=== PATIENT | female | born 1945 | race Caucasian/White ===

== ENCOUNTER → 2017-04-03 | Outpatient (CLI) | payer MEDICARE, OTHER ==
[~2017-04-03] MED LIST: ASPI81TA11 PO; ATEN50TA PO; ATOR20TA15 PO; CALC600T PO; HYDR25TA5 PO; MULTTAB67 PO
[2017-04-03 13:03] LABS: HEMATOCRIT 39.2 % (35.0-46.0); MEAN CELL VOLUME 92.3 FL (80.0-100.0); MEAN CORPUSCULAR HEMOGLOBIN 31.7 PG (27.0-34.0); MEAN CORPUSCULAR HGB CONC 34.4 % (32.0-36.0); PLATELET COUNT 161 TH/MM3 (150-450); RED BLOOD COUNT 4.25 MIL/MM3 (4.00-5.30); RED CELL DISTRIBUTION WIDTH 13.2 % (11.6-17.2); REVIEW FLAG FINAL; WHITE BLOOD COUNT 4.6 TH/MM3 (4.0-11.0)
[2017-04-03 13:13] LABS: ANION GAP 3 MEQ/L (5-15); BICARBONATE 31.3 MEQ/L (21.0-32.0); BLOOD UREA NITROGEN 22 MG/DL (7-18); CHLORIDE 107 MEQ/L (98-107); GLUCOSE,FASTING 88 MG/DL (74-99); POTASSIUM 4.3 MEQ/L (3.5-5.1); SODIUM (NA) 141 MEQ/L (136-145)
[2017-04-03 13:16] LABS: ALKALINE PHOSPHATASE 69 U/L (45-117); ALT (GPT) 34 U/L (10-53); AST (GOT) 25 U/L (15-37); GLOMERULAR FILTRATION RATE 76 ML/MIN (>89); HDL CHOLESTEROL 65.5 MG/DL (40.0-60.0); LDL CHOLESTEROL 98 MG/DL (0-99); TOTAL BILIRUBIN ADULT 0.7 MG/DL (0.2-1.0)
== END ==
LOC: PLAB 10:29
PROVIDERS: ATTEND Family Medicine
DX: E78.5 Hyperlipidemia, unspecified (principal); I10 Essential (primary) hypertension
CPT/HCPCS: 36415; 80053; 80061; 85027

== ENCOUNTER → 2018-01-05 | Outpatient (CLI) | payer MEDICARE, OTHER ==
[~2018-01-05] MED LIST changes: +ALEV220T14 PO; -ASPI81TA11 PO; +ASPI81TA23 PO; +MAPA500T13 PO
[2018-01-05 09:11] LABS: AUTOMATED NEUTROPHIL # 3.3 TH/MM3 (1.8-7.7); BASOPHIL # 0.1 TH/MM3 (0-0.2); EOSINOPHIL # 0.2 TH/MM3 (0-0.4); EOSINOPHIL % 3.9 % (0.0-4.0); HEMATOCRIT 40.3 % (35.0-46.0); HEMOGLOBIN 14.1 GM/DL (11.6-15.3); LYMPH % 26.2 % (9.0-44.0); LYMPHOCYTE # 1.5 TH/MM3 (1.0-4.8); MEAN CORPUSCULAR HEMOGLOBIN 32.2 PG (27.0-34.0); MEAN PLATELET VOLUME 8.4 FL (7.0-11.0); MONO % 10.6 % (0.0-8.0); MONOCYTE # 0.6 TH/MM3 (0-0.9); NEUT % 58.3 % (16.0-70.0); PLATELET COUNT 192 TH/MM3 (150-450); RED BLOOD COUNT 4.38 MIL/MM3 (4.00-5.30); RED CELL DISTRIBUTION WIDTH 13.1 % (11.6-17.2); WHITE BLOOD COUNT 5.7 TH/MM3 (4.0-11.0)
[2018-01-05 09:20] LABS: INTERNATIONAL NORMALIZED RATIO 1.1 RATIO; PROTHROMBIN TIME - PATIENT 10.7 SEC (9.8-11.6)
[2018-01-05 09:34] LABS: BICARBONATE 28.3 MEQ/L (21.0-32.0); CALCIUM 9.8 MG/DL (8.5-10.1); CREATININE 0.77 MG/DL (0.50-1.00)
[2018-01-05 12:32] LABS: BACTERIA, URINE MANY /hpf; BILIRUBIN, URINE NEG (NEG); BLOOD, URINE SMALL (NEG); GLUCOSE,URINE NEG (NEG); KETONE, URINE NEG (NEG); MUCUS URINE FEW /lpf (OCC); NITRITE,URINE POS (NEG); PH, URINE 6.5 (5.0-8.5); SQUAMOUS EPITHELIAL CELL URINE <1 /hpf (0-5); URINE COLOR YELLOW (YELLW/STRAW); URINE LEUKOCYTE ESTERASE TRACE (NEG)
--- NOTE | 2018-01-06 23:13 | EKG ---
Date Performed: 01/05/2018 Time Performed: 08:36:59 PTAGE: 73 years EKG: SINUS BRADYCARDIA BORDERLINE ECG Since the prior tracing, there has been no significant jared nge DOCTOR: Gerber Edouard Interpretating Date/Time 01/06/2018 23:13:05
== END ==
LOC: CPRE 08:05
PROVIDERS: ATTEND Orthopaedic Surgery Orthopaedic Surgery of the Spine
DX: Z01.812 Encounter for preprocedural laboratory examination (principal); Z01.810 Encounter for preprocedural cardiovascular examination; R82.99 Other abnormal findings in urine; M16.12 Unilateral primary osteoarthritis, left hip; B96.20 Unspecified Escherichia coli [E. coli] as the cause of diseases classified elsewhere; Z16.11 Resistance to penicillins
CPT/HCPCS: 36415; 80048; 81001; 85025; 85610; 85730; 87077; 87086; 87186; 93005

== ENCOUNTER → 2018-01-15 | Outpatient (CLI) | payer MEDICARE, OTHER ==
[~2018-01-15] MED LIST changes: +ASPI325T33 PO; +COMMODE 3-IN-11 MIS; +HYDR-3580 PO; +WALKER WHEELS/F1 MIS
[2018-01-15 10:19] LABS: AMORPHOUS SEDIMENT, URINE MANY; BACTERIA, URINE OCC /hpf; BILIRUBIN, URINE NEG (NEG); BLOOD, URINE NEG (NEG); GLUCOSE,URINE NEG (NEG); KETONE, URINE NEG (NEG); NITRITE,URINE NEG (NEG); PH, URINE 7.5 (5.0-8.5); URINE COLOR YELLOW (YELLW/STRAW); URINE LEUKOCYTE ESTERASE NEG (NEG)
== END ==
LOC: PLAB 07:52
DX: N39.0 Urinary tract infection, site not specified (principal)
CPT/HCPCS: 81001

== ENCOUNTER 2018-01-25 07:28 | Inpatient (IN) | payer MEDICARE, OTHER ==
[~2018-01-25] VITALS: Ht 170.2 cm; Wt 75.9 kg
[~2018-01-25 07:28] MED LIST changes: -ASPI325T33 PO; -COMMODE 3-IN-11 MIS; -HYDR-3580 PO; -WALKER WHEELS/F1 MIS
[2018-01-25] MEDS ORDERED: CHLORHEXIDINE GLUCONATE 2 % 1 PACK (2 CLOTHS) TOPICAL PRN (07:45)
[2018-01-25] MEDS ORDERED: METOPROLOL TARTRATE 25 MG TAB PO PRN (07:45)
[2018-01-25] MEDS ORDERED: SODIUM CHLORID 0.9% 500 ML IV PRN (07:45)
[2018-01-25] MEDS ORDERED: VANCOMYCIN 1 GM/200 ML INJ 200 ML IV ONE (08:03)
[2018-01-25] MEDS: POVIDONE IODINE 5% (ANTISEPSIS KIT) 4 APPLICATIONS EACH NARE PRN ×2 (08:15→13:02)
[2018-01-25] MEDS: LACTATED RINGER'S 1000 ML IV PRN ×2 (08:15→13:02)
[2018-01-25] MEDS: CHLORHEXIDINE GLUCONATE 4% SOLN 120 ML BTL TOPICAL SCH ×2 (08:15→13:02)
[2018-01-25] MEDS ORDERED: BUPIVACAINE/EPINEPHRINE 0.25% 50 ML VIAL ONE (08:20)
[2018-01-25] MEDS ORDERED: GENTAMICIN SULFATE 80 MG/2 ML VIAL ONE (08:20)
[2018-01-25] MEDS ORDERED: BUPIVACAINE/EPINEPHRINE 0.25% PF 10 ML VIAL ONE (08:20)
[2018-01-25] MEDS: VANCOMYCIN 1 GM/200 ML PREMIX IV SCH ×2 (08:29→13:01)
[2018-01-25] MEDS ORDERED: ceFAZolin INJ 1,000 MG VIAL ONE (09:00)
[2018-01-25] MEDS: SODIUM CHLORIDE 0.9% IV SCH ×2 (09:24→13:01)
[2018-01-25] MEDS: TRANEXAMIC ACID IV SCH ×2 (09:24→13:01)
[2018-01-25] MEDS ORDERED: ACETAMINOPHEN 1000 MG/100 ML 100 ML IV ONE (09:50)
[2018-01-25] MEDS: EXPAREL PERI-ARTICULAR INJECTION (TOTAL VOL. 60 ML) P-ARTICULR SCH ×4 (10:42→13:01)
[2018-01-25] MEDS ORDERED: ePHEDrine/NS 25 MG/5 ML SYRINGE IV ONE (12:00)
[2018-01-25] MEDS ORDERED: NEOSTIGMINE 5 MG/5 ML SYRINGE IV PUSH ONE (12:00)
[2018-01-25] MEDS ORDERED: PROPOFOL 200 MG/20 ML AMP IV ONE (12:00)
[2018-01-25] MEDS ORDERED: GLYCOPYRROLATE 1 MG/5 ML SYRINGE IV PUSH ONE (12:00)
[2018-01-25] MEDS ORDERED: ONDANSETRON HCL 4 MG/2 ML VIAL IV ONE (12:00)
[2018-01-25] MEDS ORDERED: LIDOCAINE HCL 1% PF 5 ML SYRINGE OTHER ONE (12:00)
[2018-01-25] MEDS ORDERED: SUCCINYLCHOLINE CHLORIDE 100 MG/5 ML SYRINGE IV PUSH ONE (12:00)
[2018-01-25] MEDS ORDERED: DEXAMETHASONE SOD PHOS 4 MG/ML VIAL IV ONE (12:00)
[2018-01-25] MEDS ORDERED: ROCURONIUM INJ 50 MG/5 ML SYRINGE IV PUSH ONE (12:00)
[2018-01-25] MEDS ORDERED: DO NOT ADM ANY ANTICOAGULANT DRUGS PRN (12:11)
--- NOTE | 2018-01-25 12:11 | PD.OP ---
cc: Royce Jenkins MD Operative Report Date of Surgery: Jan 25, 2018 Preoperative Diagnosis: Osteoarthritis left hip Postoperative Diagnosis: Same Procedure: Left total hip replacement arthroplasty, direct anterior exposure Anesthesia: Gen. Surgeon: Royce Jenkins Family Preservation Caseworker(s): ALDO Robertson Operation and Findings: EBL: 300 cc INDICATION: This patient presents with significant hip pain related to severe osteoarthritis of the left hip. Despite extensive conservative care this patient continues to be painful and now presents for surgical treatment. NOTE: Tequila Robertson PA-C was present for the entire surgical procedure as my preschool assistant. In my medical opinion her skill and care was necessary for the proper management of this patient. COMPONENTS: COMPANY: [employer] CUP: [place], 54 mm, 100 series, gription surface LINER: Altrx 36, neutral STEM: [place], size 13, standard offset, hydroxyapatite-coated HEAD: Metal, 36 mm, +1.5, 10/12 taper PROCEDURE: This patient was brought to the operating room and anesthetized in the supine position and positioned on the fracture table with both legs held extended. The left hip and leg was scrubbed with alcohol followed by Hibiclens followed by ChloraPrep and draped sterilely. Antibiotics were given within routine time window and a timeout was done. A 4 inch incision was made starting 2 cm distal and 2 cm lateral to the anterior superior iliac spine. The fascia naresh was opened longitudinally. The interval between the fascia naresh and the rectus was opened down to the capsule of the hip joint. Retractors were positioned allowing good visualization of the capsule. This was opened longitudinally and flaps were created. Stay sutures were utilized. Exposure was excellent. The neck was cut at the proper location using fluoroscopy as a guide. The head was removed. Deep retractors were positioned allowing good visualization of the acetabulum. Acetabulum was deepened down to the floor starting with a proper size reamer and reaming up to 53 mm. A trial was utilized. Fluoroscopy was used to check position and confirmed satisfactory alignment. The rim was reamed with a 54 mm reamer and the final cup was positioned in approximately 20 of anteversion and 40-45 of abduction. Position was satisfactory. A single hole eliminator was positioned followed by the final liner. The lifting hook was utilized. The leg was dropped to the floor, maximally externally rotated and brought across the midline. Retractors were positioned. A box osteotome was utilized followed by progressive broaching to the proper stem size. Trial reduction showed excellent alignment and fit. With 60 of external rotation the leg was dropped to the floor without evidence of anterior subluxation. The wound was irrigated. The final stem was inserted and was found to be very stable. The final reduction using the final head. Stability was as previously noted. Intraoperative x-rays were taken. The wound was irrigated copiously. Hemostasis was controlled. Local anesthesia was utilized. The capsule was repaired with #2 Tycron sutures. The fascia naresh was repaired with running 0 PDS on a loop. Subcutaneous tissue was approximated with 2-0 Vicryl and skin with running intradermal 3-0 Vicryl followed by Steri-Strips. A sterile dressing was applied. The patient was awakened and taken to the recovery room in satisfactory condition. FINDINGS: There was severe osteoarthritis of the left hip. An anterior osteophyte was removed with osteotomes. The final fit, leg length and offset appeared be excellent. There was no complication was appreciated. Royce Jenkins MD Jan 25, 2018 12:10
[2018-01-25] MEDS ORDERED: ASPI325T33 PO (12:13)
[2018-01-25] MEDS ORDERED: HYDR-3580 PO (12:13)
[2018-01-25] MEDS ORDERED: MISCELLANEOUS NURSING INFORMATION XX PRN (12:15)
[2018-01-25] MEDS ORDERED: Post-op Orders (for Pharmacy) XX ONE (12:15)
[2018-01-25] MEDS ORDERED: ACETAMINOPHEN/HYDROcodone 325 MG/7.5 MG TAB PO PRN (12:15)
[2018-01-25] MEDS ORDERED: MISCELLANEOUS PHARMACY INFORMATION XX ONE (12:15)
[2018-01-25] MEDS ORDERED: MORPHINE SULFATE 8 MG/ML INJ IM PRN (12:15)
[2018-01-25] MEDS ORDERED: NALOXONE HCL 0.4 MG/ML AMP IV PUSH PRN (12:15)
[2018-01-25] MEDS ORDERED: *morphine SULFATE 8 MG/ML PERIprocedure ONLY ONE (12:33)
[2018-01-25] MEDS: LACTATED RINGER'S 1000 ML INJ 1,000 ML IV SCH (12:45)
[2018-01-25 14:00] VITALS: BP 157/72; PULSE 49; RESP 18; TEMP 97.3; O2SAT 98
[2018-01-25] MEDS ORDERED: ASPIRIN 81 MG CHEW TAB CHEW ONE (14:00)
--- NOTE | 2018-01-25 15:14 | RADRPT ---
EXAM DATE/TIME: 01/25/2018 10:22 [facility] COMPARISON: No previous studies available for comparison. INDICATIONS : Total left hip placement. MEDICAL HISTORY : None. SURGICAL HISTORY : None. ENCOUNTER: Initial ACUITY: 1 day PAIN SCORE: Non-responsive. LOCATION: Left Hip. FINDINGS: Patient is status post placement of a left hip prosthesis. There is good position and alignment of th e prosthesis and bony structures. The bony structures are grossly intact. Postsurgical changes are pr esent. CONCLUSION: Good position and alignment on this postoperative examination. Corey Craig MD on January 25, 2018 at 15:12 Board Certified Radiologist. This report was verified electronically.
[2018-01-25 19:00] VITALS: BP 151/67; PULSE 62; RESP 18; TEMP 97.4; O2SAT 99
[2018-01-25] MEDS: ACETAMINOPHEN/HYDROcodone 325 MG/7.5 MG TAB PO PRN (19:48)
[2018-01-25] MEDS ORDERED: SENNOSIDES 8.6 MG TAB PO SCH (21:00)
[2018-01-25] MEDS: MAGNESIUM HYDROXIDE SUSP 30 ML CUP PO SCH (21:00)
[2018-01-25] MEDS ORDERED: ATORVASTATIN 20 MG TAB PO SCH (21:00)
[2018-01-25] MEDS: ASPIRIN EC 81 MG TABEC PO SCH (21:15)
[2018-01-25] MEDS: ATENOLOL 50 MG TAB PO SCH (21:15)
[2018-01-26] VITALS: BP 129/74; PULSE 83; RESP 17; TEMP 98.6; O2SAT 97
[2018-01-26] MEDS: LACTATED RINGER'S 1000 ML INJ 1,000 ML IV SCH (03:27)
[2018-01-26] MEDS: ACETAMINOPHEN/HYDROcodone 325 MG/7.5 MG TAB PO PRN ×2 (04:04→08:29)
[2018-01-26 04:10] VITALS: BP 132/72; PULSE 69; RESP 16; TEMP 98.3; O2SAT 97
[2018-01-26 06:08] LABS: HEMATOCRIT 31.1 % (35.0-46.0); HEMOGLOBIN 10.9 GM/DL (11.6-15.3)
--- NOTE | 2018-01-26 07:27 | HHI.FF ---
Face to Face Verification Diagnosis: (1) Osteoarthritis of left hip Physical Therapy Gait training, Safety evaluation, Transfer training, bed to chair Hip: Total hip, Protocol: Left, Progress to weight bearing Left LE Weight Bearing: WB as tolerated Additional Instructions PT 3-4 days/wk for 2 weeks. WBAT Left LE. LUZ ELENA anterior precautions. Gait aid as needed. LE strengthening. Nursing RN Days per Week: 2 x Week(s): 1 RN: 3 days/week x 2 weeks ((incorrect)) Dressing Changes: Do not change dressing Additional Instructions RN 2x/week for 1 week. Vitals assessment. Hold dressing changes - do not change dressing unless saturated. I have seen patient Isi Howard on 01/26/18. My clinical findings support the need for the requested home health care services because: Limited ability to care for self High risk of falls I certify that my clinical findings support that this patient is homebound because: Post-op weakness Unsteady gait/balance Ashtyn Castillo Jan 26, 2018 07:27
--- NOTE | 2018-01-26 07:28 | HHI.DCPOC ---
Discharge Care Plan Diagnosis: (1) Osteoarthritis of left hip Your Health Problems Are: Difficulty with ADL Incision/Drains Inflammation Goals to Promote Your Health * To prevent worsening of your condition and complications * To maintain your health at the optimal level Directions to Meet Your Goals Take your medications as prescribed Follow your dietary instruction Follow activity as directed Keep your appointments as scheduled Take your immunizations and boosters as scheduled If your symptoms worsen call your PCP, if no PCP go to Urgent Care Center or Emergency Room Smoking is Dangerous to Your Health. Avoid second hand smoke Call the 24-hour hour crisis hotline for domestic abuse at Ashtyn Castillo Jan 26, 2018 07:28
[2018-01-26] MEDS ORDERED: WALKER WHEELS/F1 MIS (07:29)
--- NOTE | 2018-01-26 07:29 | HHI.DS ---
Discharge Summary Admission Date Jan 25, 2018 at 07:28 Discharge Date: Jan 26, 2018 Admitting Diagnosis see below Diagnosis: (1) Osteoarthritis of left hip Diagnosis: Principal ICD Codes: M16.12 - Unilateral primary osteoarthritis, left hip Procedures Left total hip arthroplasty, direct anterior approach Brief History This is a 73 year old female patient CBC/BMP: 01/26/18 0526 Significant Findings Laboratory Tests Test 01/26/18 05:26 Hemoglobin 10.9 GM/DL (11.6-15.3) Hematocrit 31.1 % (35.0-46.0) Hospital Course C pod#1 ASA 81mg. Mears 7.5mg. Pt Condition on Discharge: Stable Discharge Disposition: Disch w/ Home Health Serv Discharge Instructions Diet Instructions: As Tolerated, No Restrictions, High Fiber Diet Activities You Can Perform: Weight Bearing as Nathanael Activities to Avoid: Strenuous Activity Additional Activity Instruc.: LUZ ELENA, anterior protocol New Medications: Aspirin DR (Aspirin EC) 325 Mg Tabdr 81 MG PO BID for Prevent Blood Clot, #60 TAB Hydrocodone/Acetaminophen (Hydrocodone-Acetamin 7.5-325) 7.5 Mg-325 Mg Tablet 1 TAB PO Q4H PRN for PAIN, #42 TAB Continued Medications: Acetaminophen (Mapap Extra Strength) 500 Mg Tab 500 MG PO Q4-6H PRN for PAIN, TAB [address] (Aspirin EC) 81 Mg Tabdr 81 MG PO mo,we,fr, #100 TAB 0 Refills take 1 tab po three times per week. Atenolol (Atenolol) 50 Mg Tab 50 MG PO BID for Blood Pressure Management, #180 TAB 3 Refills Atorvastatin (Atorvastatin) 20 Mg Tab 20 MG PO HS for Cholesterol Management, #90 TAB 3 Refills Calcium Carbonate-Vitamin D (Calcium/Vitamin D) 600-400 Mg-Unit Tab 1 TAB PO BID for Calcium Supplement, #180 TAB 0 Refills Hydrochlorothiazide (Hydrochlorothiazide) 25 Mg Tab 25 MG PO DAILY, #90 TAB 3 Refills Multiple Vitamin (Multiple Vitamin) 1 Tab 1 TAB PO DAILY for Nutritional Supplement, #90 TAB 0 Refills Ashtyn Castillo Jan 26, 2018 07:29
[2018-01-26] MEDS ORDERED: COMMODE 3-IN-11 MIS (07:40)
--- NOTE | 2018-01-26 07:40 | PD.ORT.PN ---
Subjective Subjective Remarks She is doing well. Moderate left hip pain but well controlled. Didn't sleep well last night but is doing good this morning. Mild sore throat. No new CP or SOB. Prefers d/c home today. Objective Vitals Vital Signs Date Time Temp Pulse Resp B/P (MAP) Pulse Ox O2 Delivery O2 Flow Rate FiO2 01/26/18 04:10 98.3 69 16 132/72 (92) 97 01/26/18 00:00 98.6 83 17 129/74 (92) 97 01/25/18 20:48 18 01/25/18 19:00 97.4 62 18 151/67 (95) 99 01/25/18 14:00 97.3 49 18 157/72 (100) 98 01/25/18 13:30 52 16 151/78 (102) 97 Room Air 01/25/18 13:15 52 16 140/94 (109) 97 Room Air 01/25/18 13:00 52 16 152/75 (100) 98 Room Air 01/25/18 12:45 52 16 160/69 (99) 97 Room Air 01/25/18 12:30 52 16 160/76 (104) 98 Room Air 01/25/18 12:15 97.8 62 16 176/77 (110) 100 01/25/18 07:58 98.1 56 20 200/86 (124) 98 I/O 01/25/18 01/25/18 01/25/18 01/26/18 01/26/18 01/26/18 06:59 14:59 22:59 06:59 14:59 22:59 Intake Total 2000 ml 100 ml 1840 ml Output Total 300 ml Balance 1700 ml 100 ml 1840 ml Intake Oral 740 ml IV Total 2000 ml 100 ml 1100 ml Output Estimated Blood Loss 300 ml # Voids 1 5 # Bowel Movements 0 Result Diagram: 01/26/18 0526 Procedures Left total hip arthroplasty, direct anterior approach Objective Remarks Laying in bed NAD VSS Left LE Dressing intact, mild SS drainage distal, no erythema, mild swelling +motor at distal, +sens, +nvi Neg homans Assessment & Plan Ortho Post Op Day #: 1 Problem List: (1) Osteoarthritis of left hip ICD Codes: M16.12 - Unilateral primary osteoarthritis, left hip Qualifiers: Qualified Codes: M16.12 - Unilateral primary osteoarthritis, left hip Assessment and Plan pod#1 s/p L LUZ ELENA, anterior Doing well. Some pain but controlled on PO meds. Ok for d/c home w [facility] today after PT. Hold dressing changes unless saturated. PT - WBAT LLE. Anterior luz elena precautions. ASA 81mg bid for 30 days. Ice to operative hip. F/U at 2 weeks postop as scheduled. F2F written. Ashtyn Castillo Jan 26, 2018 07:40
[2018-01-26 08:00] VITALS: BP 122/57; PULSE 66; RESP 16; TEMP 98; O2SAT 97
[2018-01-26] MEDS: ASPIRIN EC 81 MG TABEC PO SCH (08:26)
[2018-01-26] MEDS: ATENOLOL 50 MG TAB PO SCH (08:27)
[2018-01-26] MEDS: MAGNESIUM HYDROXIDE SUSP 30 ML CUP PO SCH (08:30)
[2018-01-26] MEDS ORDERED: HYDROCHLOROTHIAZIDE 25 MG TAB PO SCH (09:00)
== END 2018-01-26 13:59 | disposition home health service (06) | DRG 470 ==
LOC: HSDI 07:28 → N06B 13:49
PROVIDERS: ADMIT Orthopaedic Surgery Orthopaedic Surgery of the Spine; ATTEND Orthopaedic Surgery Orthopaedic Surgery of the Spine
PROC: 0SRB02A Replacement of Left Hip Joint with Metal on Polyethylene Synthetic Substitute, Uncemented, Open Approach (ICD-10-PCS; principal; 2018-01-25 09:59)
DX: M16.12 Unilateral primary osteoarthritis, left hip (principal); I10 Essential (primary) hypertension; E78.5 Hyperlipidemia, unspecified; Z87.891 Personal history of nicotine dependence; K21.9 Gastro-esophageal reflux disease without esophagitis; Z85.820 Personal history of malignant melanoma of skin
CPT/HCPCS: 73502; 76000; 85014; 85018; 86850; 86900; 86901; 86920; C1776; J0131; J0330; J0690; J1100; J1580; J2270; J2405; J2710; J3010; J3370; J7120

== ENCOUNTER → 2018-03-29 | Outpatient (CLI) | payer MEDICARE, OTHER ==
[~2018-03-29] MED LIST changes: -ALEV220T14 PO; +ASPI325T33 PO; +COMMODE 3-IN-11 MIS; +HYDR-3580 PO; +WALKER WHEELS/F1 MIS
[2018-03-29 10:49] LABS: ALBUMIN 3.6 GM/DL (3.4-5.0); AST (GOT) 31 U/L (15-37); BICARBONATE 26.6 MEQ/L (21.0-32.0); BLOOD UREA NITROGEN 22 MG/DL (7-18); CALCIUM 9.5 MG/DL (8.5-10.1); CHLORIDE 107 MEQ/L (98-107); CREATININE 0.68 MG/DL (0.50-1.00); GLOMERULAR FILTRATION RATE 85 ML/MIN (>89); GLUCOSE,FASTING 95 MG/DL (74-99); SODIUM (NA) 142 MEQ/L (136-145)
[2018-03-29 10:50] LABS: CHOLESTEROL 170 MG/DL (120-200)
[2018-03-29 10:54] LABS: ALKALINE PHOSPHATASE 96 U/L (45-117); ALT (GPT) 34 U/L (10-53); CHOLESTEROL/ HDL RATIO 2.73 RATIO; HDL CHOLESTEROL 62.2 MG/DL (40.0-60.0); LDL CHOLESTEROL 91 MG/DL (0-99); TOTAL BILIRUBIN ADULT 0.3 MG/DL (0.2-1.0); TOTAL PROTEIN 6.4 GM/DL (6.4-8.2); TRIGLYCERIDES 82 MG/DL (42-150)
[2018-03-29 10:57] LABS: AUTOMATED NEUTROPHIL # 1.8 TH/MM3 (1.8-7.7); EOSINOPHIL # 0.3 TH/MM3 (0-0.4); EOSINOPHIL % 6.6 % (0.0-4.0); HEMATOCRIT 38.6 % (35.0-46.0); LYMPH % 39.4 % (9.0-44.0); LYMPHOCYTE # 1.7 TH/MM3 (1.0-4.8); MEAN CELL VOLUME 93.4 FL (80.0-100.0); MEAN CORPUSCULAR HEMOGLOBIN 31.4 PG (27.0-34.0); MEAN CORPUSCULAR HGB CONC 33.6 % (32.0-36.0); MEAN PLATELET VOLUME 9.1 FL (7.0-11.0); MONO % 9.6 % (0.0-8.0); MONOCYTE # 0.4 TH/MM3 (0-0.9); NEUT % 43.4 % (16.0-70.0); PLATELET COUNT 174 TH/MM3 (150-450); RED BLOOD COUNT 4.13 MIL/MM3 (4.00-5.30); RED CELL DISTRIBUTION WIDTH 12.7 % (11.6-17.2); WHITE BLOOD COUNT 4.3 TH/MM3 (4.0-11.0)
== END ==
LOC: PLAB 07:02
PROVIDERS: ATTEND Family Medicine
DX: I10 Essential (primary) hypertension (principal); E78.00 Pure hypercholesterolemia, unspecified
CPT/HCPCS: 36415; 80053; 80061; 85025